=== PATIENT | female | born 1960 | race Caucasian/White ===

== ENCOUNTER 2016-08-23 21:58 | Emergency (ER) | payer MEDICAID ==
[2016-08-15 08:58] VITALS: BMI 23.6
[~2016-08-23 21:58] MED LIST: HYDROCODON-ACE1 EAC7 PO; LEVSIN/ANASP0.125 MG PO; PRILOSEC20 MG PO
[2016-08-23 22:56] LABS: APPEARANCE HAZY (CLEAR); BILIRUBIN NEGATIVE (NEGATIVE); COLOR YELLOW (YELLOW); GLUCOSE NEGATIVE (NEGATIVE); KETONE NEGATIVE (NEGATIVE); LEUKOCYTE ESTERASE TRACE (NEGATIVE); NITRITE NEGATIVE (NEGATIVE); PROTEIN NEGATIVE (NEGATIVE); UROBILINOGEN NORMAL (NORMAL)
[2016-08-23 22:57] LABS: WHITE CELLS - URINE 25-50 /hpf (0-5)
[2016-08-23 22:58] LABS: BACTERIA MODERATE /hpf (NONE SEEN)
[2016-08-23 23:28] LABS: BASOPHILS 0.3 % (0.0-2.0); EOSINOPHILS 0.6 % (0-7); HEMATOCRIT 42.7 % (36.0-48.0); HEMOGLOBIN 14.1 g/dL (12-16); IMMATURE GRANULOCYTES 0.4 % (0-5); LYMPHOCYTES 17.4 % (15-50); MCH 30.5 pg (26.0-34.0); MCV 92.2 fL (80.0-100.0); MEAN PLATELET VOLUME 12.4 fL (7.4-10.4); MONOCYTES 7.8 % (2-11); NEUTROPHILS 73.5 % (40-80); RBC 4.63 10x6/uL (4.00-5.40); RDW 12.7 % (11.5-14.5); WBC 9.7 10x3/uL (4.8-10.8)
[2016-08-23 23:32] LABS: PLATELET COUNT 191 10x3/uL (130-400)
== END 2016-08-24 00:36 | disposition home or self-care (01) ==
LOC: D.ER 21:58
PROVIDERS: Emergency Medicine
DX: R10.9 Unspecified abdominal pain (principal); R82.71 Bacteriuria; N39.0 Urinary tract infection, site not specified

== ENCOUNTER 2018-05-14 09:10 | Emergency (ER) | payer MEDICAID ==
[~2018-05-14] VITALS: Ht 149.9 cm; Wt 59.1 kg
[2018-05-14 09:12] VITALS: Ht 149.9 cm; Wt 59.1 kg
[2018-05-14 09:41] LABS: BASOPHILS 0.2 % (0-2); EOSINOPHILS 0.5 % (0-7); HEMATOCRIT 45.8 % (36.0-48.0); HEMOGLOBIN 15.5 g/dL (12-16); IMMATURE GRANULOCYTES 0.7 % (0-5); LYMPHOCYTES 14.8 % (15-50); MCH 31.1 pg (26.0-34.0); MCHC 33.8 g/dL (31.0-37.0); MCV 91.8 fL (80.0-100.0); MEAN PLATELET VOLUME 12.3 fL (7.4-10.4); NEUTROPHILS 79.8 % (40-80); PLATELET COUNT 177 10x3/uL (130-400); RBC 4.99 10x6/uL (4.00-5.40); RDW 13.2 % (11.5-14.5); WBC 8.3 10x3/uL (4.8-10.8)
[2018-05-14 09:56] LABS: ALBUMIN 3.8 g/dL (3.4-5.0); ALKALINE PHOSPHATASE 86 U/L (46-116); ALT (SGPT) 24 U/L (10-68); AMYLASE - SERUM 46 U/L (25-115); BILIRUBIN - TOTAL 0.69 mg/dL (0.2-1.3); CALC OSMOLALITY 281 mosm/kg (275-300); CALCIUM 9.4 mg/dL (8.5-10.1); CARBON DIOXIDE 24.4 mmol/L (21.0-32.0); CHLORIDE - SERUM 105 mmol/L (98-107); CREATININE - SERUM 0.8 mg/dL (0.6-1.3); GLUCOSE 112 mg/dL (74-106); LIPASE 130 U/L (73-393); POTASSIUM - SERUM 4.4 mmol/L (3.5-5.1); PROTEIN - SERUM 7.3 g/dL (6.4-8.2); SODIUM 141 mmol/L (136-145); UREA NITROGEN 12 mg/dL (7-18); eGFR NON AFRICAN AMERICAN 78 mL/min (90-120)
[2018-05-14 10:00] LABS: UDS - AMPHET NEGATIVE QUAL (NEGATIVE); UDS - BARB NEGATIVE QUAL (NEGATIVE); UDS - BENZO NEGATIVE QUAL (NEGATIVE); UDS - COCAINE NEGATIVE QUAL (NEGATIVE); UDS - OPIATE NEGATIVE QUAL (NEGATIVE); UDS - PCP NEGATIVE QUAL (NEGATIVE); UDS - THC NEGATIVE QUAL (NEGATIVE)
[2018-05-14 10:07] LABS: APPEARANCE CLEAR (CLEAR); BILIRUBIN NEGATIVE (NEGATIVE); COLOR YELLOW (YELLOW); GLUCOSE NEGATIVE (NEGATIVE); KETONE NEGATIVE (NEGATIVE); NITRITE NEGATIVE (NEGATIVE); PROTEIN NEGATIVE (NEGATIVE); UROBILINOGEN NORMAL (NORMAL)
[2018-05-14 12:50] VITALS: BP 101/56
[2018-05-14] MEDS ORDERED: NORCO 7.5/325 T1 TA1 PO (13:55)
[2018-05-14] MEDS ORDERED: ZOFRAN ODT4 MG/UDTAB PO (13:55)
[2018-05-14] MEDS ORDERED: IMODIUM2 MG PO (13:55)
== END 2018-05-14 14:28 | disposition home or self-care (01) ==
LOC: D.ER 09:10
PROVIDERS: Emergency Medicine
DX: A08.4 Viral intestinal infection, unspecified (principal)

== ENCOUNTER 2018-10-10 09:15 | Emergency (ER) | payer MEDICAID ==
[~2018-10-10] VITALS: Ht 149.9 cm; Wt 51.6 kg
[~2018-10-10 09:15] MED LIST changes: +IMODIUM2 MG PO; +NORCO 7.5/325 T1 TA1 PO; +ZOFRAN ODT4 MG/UDTAB PO
[2018-10-10 09:26] VITALS: Ht 149.9 cm; Wt 51.6 kg
[2018-10-10] MEDS ORDERED: ATIVAN1 MG PO (09:29)
[2018-10-10 09:53] LABS: BASOPHILS 0.5 % (0-2); EOSINOPHILS 0.5 % (0-7); HEMATOCRIT 44.1 % (36.0-48.0); HEMOGLOBIN 14.8 g/dL (12-16); IMMATURE GRANULOCYTES 0.7 % (0-5); LYMPHOCYTES 15.1 % (15-50); MCH 31.2 pg (26.0-34.0); MCHC 33.6 g/dL (31.0-37.0); MCV 92.8 fL (80.0-100.0); MEAN PLATELET VOLUME 12.1 fL (7.4-10.4); MONOCYTES 5.8 % (2-11); NEUTROPHILS 77.4 % (40-80); PLATELET COUNT 180 10x3/uL (130-400); RBC 4.75 10x6/uL (4.00-5.40); RDW 13.1 % (11.5-14.5); WBC 8.8 10x3/uL (4.8-10.8)
[2018-10-10 10:05] LABS: ALBUMIN 3.8 g/dL (3.4-5.0); ALKALINE PHOSPHATASE 78 U/L (46-116); ALT (SGPT) 28 U/L (10-68); BILIRUBIN - TOTAL 0.45 mg/dL (0.2-1.3); CALC OSMOLALITY 284 mosm/kg (275-300); CALCIUM 8.8 mg/dL (8.5-10.1); CARBON DIOXIDE 27.2 mmol/L (21.0-32.0); CHLORIDE - SERUM 105 mmol/L (98-107); CREATININE - SERUM 0.6 mg/dL (0.6-1.3); GLUCOSE 94 mg/dL (74-106); POTASSIUM - SERUM 4.1 mmol/L (3.5-5.1); PROTEIN - SERUM 7.2 g/dL (6.4-8.2); SODIUM 142 mmol/L (136-145); UREA NITROGEN 17 mg/dL (7-18); eGFR NON AFRICAN AMERICAN > 90 mL/min (90-120)
[2018-10-10 10:23] LABS: APPEARANCE HAZY (CLEAR); BACTERIA FEW /hpf (NONE SEEN); BILIRUBIN NEGATIVE (NEGATIVE); COLOR DK YELLOW (YELLOW); EPITHELIAL CELLS 0-5 /hpf (0-5); GLUCOSE NEGATIVE (NEGATIVE); KETONE LARGE mg/dL (NEGATIVE); MUCUS >1+ /lpf (NONE SEEN); NITRITE NEGATIVE (NEGATIVE); PROTEIN NEGATIVE (NEGATIVE); SPECIFIC GRAVITY 1.025 (1.005-1.020); UROBILINOGEN NORMAL (NORMAL); WHITE CELLS - URINE 0-5 /hpf (0-5)
[2018-10-10] MEDS ORDERED: FLAGYL500 MG PO (14:33)
[2018-10-10 15:31] VITALS: BP 106/53
== END 2018-10-10 15:33 | disposition home or self-care (01) ==
LOC: D.ER 09:15
PROVIDERS: Emergency Medicine
DX: R10.32 Left lower quadrant pain (principal); A04.72 Enterocolitis due to Clostridium difficile, not specified as recurrent; R19.7 Diarrhea, unspecified

== ENCOUNTER 2018-10-12 08:43 | Inpatient (IN) | payer MEDICAID ==
[~2018-10-12] VITALS: Ht 152.4 cm; Wt 51.3 kg
[~2018-10-12 08:43] MED LIST changes: +ATIVAN1 MG PO; +FLAGYL500 MG PO
[2018-10-12 09:25] LABS: BASOPHILS 0.3 % (0-2); EOSINOPHILS 0.3 % (0-7); HEMATOCRIT 44.6 % (36.0-48.0); HEMOGLOBIN 14.9 g/dL (12-16); IMMATURE GRANULOCYTES 0.8 % (0-5); LYMPHOCYTES 9.9 % (15-50); MCHC 33.4 g/dL (31.0-37.0); MCV 92.9 fL (80.0-100.0); MEAN PLATELET VOLUME 12.6 fL (7.4-10.4); MONOCYTES 2.7 % (2-11); PLATELET COUNT 191 10x3/uL (130-400); RDW 13.3 % (11.5-14.5)
--- NOTE | 2018-10-12 09:26 | NUR ---
PT STATES SHE HAS BEEN DX WITH C-DIFF. PLACE PT ON ISOLATION PRECAUTIONS.
[2018-10-12 09:53] LABS: ALBUMIN 3.8 g/dL (3.4-5.0); ALKALINE PHOSPHATASE 84 U/L (46-116); AMYLASE - SERUM 31 U/L (25-115); BILIRUBIN - TOTAL 0.65 mg/dL (0.2-1.3); CALCIUM 8.6 mg/dL (8.5-10.1); GLUCOSE 77 mg/dL (74-106); LIPASE 80 U/L (73-393); UREA NITROGEN 14 mg/dL (7-18)
[2018-10-12 10:10] LABS: ALT (SGPT) 40 U/L (10-68); CREATININE - SERUM 0.4 mg/dL (0.6-1.3); eGFR NON AFRICAN AMERICAN > 90 mL/min (90-120)
[2018-10-12 10:12] LABS: TROPONIN-I < 0.017 ng/mL (0.000-0.060)
[2018-10-12 10:31] LABS: APPEARANCE CLEAR (CLEAR); BILIRUBIN NEGATIVE (NEGATIVE); COLOR YELLOW (YELLOW); GLUCOSE NEGATIVE (NEGATIVE); KETONE LARGE mg/dL (NEGATIVE); NITRITE NEGATIVE (NEGATIVE); PROTEIN NEGATIVE (NEGATIVE); SPECIFIC GRAVITY 1.025 (1.005-1.020); UROBILINOGEN NORMAL (NORMAL)
[2018-10-12 10:35] LABS: CALC OSMOLALITY 284 mosm/kg (275-300); CARBON DIOXIDE 20.7 mmol/L (21.0-32.0); CHLORIDE - SERUM 105 mmol/L (98-107); CKMB 1.1 U/L (0.0-3.6); CREATINE KINASE 39 UL (21-215); POTASSIUM - SERUM 4.1 mmol/L (3.5-5.1); SODIUM 143 mmol/L (136-145)
--- NOTE | 2018-10-12 11:53 | NUR ---
TRANSFER FROM ER BY W/C. JAKEINTED TO ROOM. CALL LIGHT IN REACH. WILL CONT. PLAN OF CARE.
[2018-10-12 12:13] VITALS: BP 114/65; BMI 22.1
[2018-10-12 13:01] VITALS: BP 102/61
--- NOTE | 2018-10-12 16:19 | NUR ---
BILAT SCDS ON ORDERED.
[2018-10-12 16:53] VITALS: BP 94/50
--- NOTE | 2018-10-12 19:34 | NUR ---
REPORT RECEIVED. PT SITTING UP IN BED WITH EYES OPEN, RR EVEN AND UNALBORED. BED IN LOW POSITION. NO S/S OF DISTRESS NOTED. AT BEDSIDE. INTRODUCED SELF TO PT AND FAMILY. PT DENIES FURTHER NEEDS AT THIS TIME. CALL LIGHT IN REACH. WILL CTM.
[2018-10-12 20:00] VITALS: BP 112/54
[2018-10-13 00:05] VITALS: BP 110/49
--- NOTE | 2018-10-13 00:10 | NUR ---
CALLED INTO THE ROOM WITH C/O HEART BURN. POINTING TO EPIGASTRIC PAIN. APPEARS VERY ANXIOUS. SPOUSE STATES " THIS HAPPENS EVERY NIGHT AND EVERY MORNING. SOMETHING IS GOING ON. YOU NEED TO CALL THE DR. HAD OFFERED AN ATIVAN EARLIER AND PT DECLINE STATING "LEAVE IT THERE AND I MIGHT TAKE IT LATER". EXPLAINED I COULD NOT LEAVE THE MEDICATION. CALLED DR. THACKER AND EXPLAINED WHAT WAS GOING ON. DR STATED HAVE HER TAKE THE ATIVAN AND IF SHE GETS WOR5SE CALL ME BACK.
--- NOTE | 2018-10-13 00:40 | NUR ---
VSS. SR PER CM HR 79. PT RESTING WITH EYES CLOSED. RESP EVEN AND REGULAR. SR UP X2, CALL LIGHT WITHIN REACH.
[2018-10-13 04:00] VITALS: BP 106/51
--- NOTE | 2018-10-13 04:17 | NUR ---
PT LYING IN BED WITH EYES CLOSED, RR EVEN AND UNLABORED. BED IN LOW POSITION. AT BEDSIDE. NO S/S OF DISTRESS NOTED. DENIES FURTHER NEEDS. CALL LIGHT IN REACH. WILL CTM.
[2018-10-13 06:11] LABS: ALKALINE PHOSPHATASE 65 U/L (46-116); BILIRUBIN - TOTAL 0.28 mg/dL (0.2-1.3); CALCIUM 7.9 mg/dL (8.5-10.1); CARBON DIOXIDE 17.1 mmol/L (21.0-32.0); CHLORIDE - SERUM 110 mmol/L (98-107); POTASSIUM - SERUM 4.4 mmol/L (3.5-5.1); PROTEIN - SERUM 5.6 g/dL (6.4-8.2); SODIUM 142 mmol/L (136-145)
[2018-10-13 06:16] LABS: CALC OSMOLALITY 278 mosm/kg (275-300); CREATININE - SERUM 0.6 mg/dL (0.6-1.3); GLUCOSE 60 mg/dL (74-106); UREA NITROGEN 6 mg/dL (7-18); eGFR NON AFRICAN AMERICAN > 90 mL/min (90-120)
[2018-10-13 06:17] LABS: ALBUMIN 2.8 g/dL (3.4-5.0); ALT (SGPT) 23 U/L (10-68)
--- NOTE | 2018-10-13 06:19 | NUR ---
CHECKED PT BLOOD SUGAR, IT WAS 47. ASKED PT TO SLOWLY SIP ORANGE JUICE. RECHECKED PT BLOOD SUGAR 27 MINUTES LATER AND IT MEASURED 61, ASKED PT TO CONTINUE TO SLOWLY SIP ORANGE JUICE AND PROVIDED PT EDUCATION ON A HEALTHY BLOOD SUGAR. WILL CTM.
[2018-10-13 06:42] LABS: HEMATOCRIT 38.2 % (36.0-48.0); HEMOGLOBIN 12.5 g/dL (12-16); MCH 30.8 pg (26.0-34.0); MCHC 32.7 g/dL (31.0-37.0); MCV 94.1 fL (80.0-100.0); MEAN PLATELET VOLUME 12.3 fL (7.4-10.4); PLATELET COUNT 189 10x3/uL (130-400); RBC 4.06 10x6/uL (4.00-5.40); RDW 13.6 % (11.5-14.5)
[2018-10-13 06:43] LABS: WBC 7.3 10x3/uL (4.8-10.8)
--- NOTE | 2018-10-13 07:30 | NUR ---
ASSESSMENT COMPLETED. ALERT AND ORIENTED. IV TO RIGHT WRIST. UP AB SHAMIR. RESP REG AND NON LABORED. SR UP WITH CALL LIGHT IN REACH. FAMILY AT BEDSIDE
[2018-10-13 08:28] LABS: EOSINOPHILS 1 % (0-7); LYMPHOCYTES 17 % (15-50); MONOCYTES 2 % (2-11); NEUTROPHILS 80 % (40-80); PLATELET ESTIMATE NORMAL
[2018-10-13 08:29] LABS: PLATELET MORPHOLOGY PLT CLUMPS PRESENT
[2018-10-13 09:57] VITALS: BP 106/55
--- NOTE | 2018-10-13 10:55 | NUR ---
RN ROUNDING DONE AND I AGREE WITH ASSESSMENT FROM YARITZA NICHOLS LPN. PATIENT IS IN ENTERIC ISOLATION. SHE IS SITTING ON TOLIET CLEANING HERSELF UP FROM LOOSE STOOL. GLASSES ON. AT SIDE. DENIES ANY NEEDS FROM ME TO HELP.
[2018-10-13 12:46] VITALS: BP 141/69
--- NOTE | 2018-10-13 13:08 | NUR ---
LYING QUIETLY. SPOUSE AT BEDSIDE. NO NEEDS VOICED
[2018-10-13 17:45] VITALS: BP 115/62
--- NOTE | 2018-10-13 19:01 | NUR ---
LYING QUIETLY. DENIES ANY NEEDS. FAMILY AT BEDSIDE.
--- NOTE | 2018-10-13 19:17 | NUR ---
RECIEVED UP IN BED WITH SPOUSE AT BEDSIDE. ALERT AND ORIENTED X4. IV TO RIGHT WRIST WITH NS INFUSING AT 125CC/HR. NO REDNESS OR SWELLING TO SITE AND DSG INTACT. FI5VNTP ANY NEEDS AT THIS TIME. WILL CONT. POC.
[2018-10-13 20:00] VITALS: BP 108/61
--- NOTE | 2018-10-13 21:29 | NUR ---
SPOUSE CALLED THIS NURSE IN THE ROOM STATING SHE DOES'NT FEEL GOOD. REQUESTING A CBG BE TAKEN D/T LOW GLUCOSE THIS AM. FSBS 119. THAN SHORTLY AFTER THAT CALLS THIS NUSE BACK INTO ROOM PT STATES SHE HAD ABD CRAMPING AND BACK, ABD PAIN. ZOFRAN AND MORPHINE GIVEN WITH RELIEF.
[2018-10-14] VITALS: BP 135/75
[2018-10-14 04:00] VITALS: BP 114/61
[2018-10-14 05:45] LABS: BASOPHILS 0.3 % (0-2); EOSINOPHILS 1.7 % (0-7); HEMATOCRIT 34.5 % (36.0-48.0); HEMOGLOBIN 11.2 g/dL (12-16); IMMATURE GRANULOCYTES 0.3 % (0-5); MCH 30.2 pg (26.0-34.0); MCHC 32.5 g/dL (31.0-37.0); MEAN PLATELET VOLUME 12.6 fL (7.4-10.4); NEUTROPHILS 50.7 % (40-80); PLATELET COUNT 167 10x3/uL (130-400); RBC 3.71 10x6/uL (4.00-5.40); RDW 13.6 % (11.5-14.5)
[2018-10-14 06:33] LABS: ALBUMIN 2.6 g/dL (3.4-5.0); ALKALINE PHOSPHATASE 56 U/L (46-116); ALT (SGPT) 23 U/L (10-68); BILIRUBIN - TOTAL 0.29 mg/dL (0.2-1.3); CALC OSMOLALITY 287 mosm/kg (275-300); CALCIUM 7.7 mg/dL (8.5-10.1); CHLORIDE - SERUM 114 mmol/L (98-107); CREATININE - SERUM 0.6 mg/dL (0.6-1.3); GLUCOSE 89 mg/dL (74-106); SODIUM 147 mmol/L (136-145); UREA NITROGEN 5 mg/dL (7-18); eGFR NON AFRICAN AMERICAN > 90 mL/min (90-120)
[2018-10-14 06:36] LABS: POTASSIUM - SERUM 3.3 mmol/L (3.5-5.1)
--- NOTE | 2018-10-14 07:43 | NUR ---
PT TALKED TO ME FOR 20 MINUTES. STATES HE'S CONCNERED THAT HER COMPAINTS ARE NOT BEING TAKEN SERIOUSLY. THEY DON'T UNDERSTAND WHY SHE HAS PERIODS OF BIG PAIN AND THEN NO PAIN. THEY WANT HER MEDICATION SWITCHED FOR MORPHINE TO HYDROCHODONE. MAD THE DID NOT COME SPEAK TO THEM LAST NIGHT. (IN THE MIDDLE OF THE NIGHT). TRIED TO APEASE THEM, ANSWERED QUESTIONS BEST I COULD. INSISTED THEY TALK TO A DR. CRAIG. CL IN REACH. SRX2.
[2018-10-14 08:33] VITALS: BP 128/57
--- NOTE | 2018-10-14 10:06 | NUR ---
PT STATES SHE CAN FINALLY EAT TODAY AND IS NOT IN PAIN OR SICK. ATE MOST OF HER BREAKFAST. REQUESTS NO MORE ZOFRAN OR MORPHINE.
--- NOTE | 2018-10-14 12:10 | NUR ---
RN ROUNDS. PATIENT REMAINS IN ISOLATION. RESP EVEN AND UNLABORED. HR 60, NOON VITALS COMPLETE AT THIS TIME.
[2018-10-14 13:26] VITALS: BP 117/55
[2018-10-14 17:01] VITALS: BP 118/60
--- NOTE | 2018-10-14 19:37 | NUR ---
EVENING ROUNDS COMPLETED. REPORT RECEIVED. PT SITTING UP IN BED WITH EYES OPEN, RR EVEN AND UNLABORED. SEVERAL FAMILY MEMBERS AT BEDSIDE. NO S/S OF DISTRESS NOTED. INTRODUCED SELF TO PT. PT AND FAMILY MEMBERS DENY FURTHER NEEDS AT THIS TIME. RT WRIST PIV INFUSING NORMAL SALINE ORDERED. BED IN LOW POSITION. CALL LIGHT IN REACH. WILL CTM.
[2018-10-14 20:00] VITALS: BP 114/70
[2018-10-15] VITALS: BP 120/70
--- NOTE | 2018-10-15 00:27 | NUR ---
PT SITTING UP IN BED WITH EYES CLOSED, RR EVEN AND UNLABORED. BED IN LOW POSITION. NO S/S OF DISTRESS NOTED. NORMAL SALINE INFUISNG ORDERED THROUGH RIGHT WRIST PIV. CALL LIGHT IN REACH. WILL CTM.
--- NOTE | 2018-10-15 02:03 | NUR ---
AGRESS WITH ASSESSMENT. PT RESTING WITH EYES CLOSED. RESP EVEN AND REAGULAR. SPOUSE AT BEDSIDE. SR UP X2, CALL LIGHT WITHIN REACH.
[2018-10-15 04:00] VITALS: BP 109/63
[2018-10-15 05:15] VITALS: BP 109/63; BP 137/91
[2018-10-15 05:46] LABS: BASOPHILS 0.3 % (0-2); EOSINOPHILS 1.6 % (0-7); HEMOGLOBIN 11.5 g/dL (12-16); IMMATURE GRANULOCYTES 0.8 % (0-5); MCH 30.5 pg (26.0-34.0); MCHC 32.9 g/dL (31.0-37.0); MCV 92.8 fL (80.0-100.0); MEAN PLATELET VOLUME 11.7 fL (7.4-10.4); MONOCYTES 6.7 % (2-11); NEUTROPHILS 56.6 % (40-80); PLATELET COUNT 153 10x3/uL (130-400); RBC 3.77 10x6/uL (4.00-5.40); RDW 13.6 % (11.5-14.5); WBC 6.3 10x3/uL (4.8-10.8)
[2018-10-15 06:02] LABS: ALBUMIN 2.6 g/dL (3.4-5.0); ALKALINE PHOSPHATASE 54 U/L (46-116); ALT (SGPT) 26 U/L (10-68); BILIRUBIN - TOTAL 0.28 mg/dL (0.2-1.3); CALCIUM 7.9 mg/dL (8.5-10.1); CARBON DIOXIDE 27.4 mmol/L (21.0-32.0); CHLORIDE - SERUM 112 mmol/L (98-107); CREATININE - SERUM 0.5 mg/dL (0.6-1.3); GLUCOSE 102 mg/dL (74-106); POTASSIUM - SERUM 4.1 mmol/L (3.5-5.1); SODIUM 146 mmol/L (136-145); eGFR NON AFRICAN AMERICAN > 90 mL/min (90-120)
[2018-10-15 06:04] LABS: CALC OSMOLALITY 286 mosm/kg (275-300); UREA NITROGEN 2 mg/dL (7-18)
[2018-10-15 08:32] VITALS: BP 136/70
--- NOTE | 2018-10-15 09:14 | NUR ---
PT GIVEN ZOFRAN FOR NAUSEA PER DR CHOI PT STATES SHE HAS HAD 3 LOOSE BMS THIS AM PT STATES SHE DOES NOT FEEL WELL SHE DID YESTERDAY. WILL RELAY TO DR JUSTIN GRIDER
--- NOTE | 2018-10-15 12:30 | NUR ---
ASSESMENT REVIEWED AND AGREE.
[2018-10-15 12:52] VITALS: BP 114/65
[2018-10-15 13:34] VITALS: Ht 152.4 cm; Wt 51.3 kg
--- NOTE | 2018-10-15 18:13 | NUR ---
PT RESTING IN BED WITH EYES OPEN CALL LIGHT IN REACH NO PROBLEMS WILL MONITER
--- NOTE | 2018-10-15 19:50 | NUR ---
RESUMED CARE OF PT, LYING IN BED RESPIRATIONS EVEN AND UNLABORED ON ROOM AIR. RIGHT WRIST INFUSING NS @ 120. CALL LIGHT IN REACH, NO NEEDS VOICED AT THIS TIME. SEE NURSE ASSESSMETN.
[2018-10-15 20:00] VITALS: BP 129/67
[2018-10-16] VITALS: BP 117/63
[2018-10-16 04:00] VITALS: BP 115/63
[2018-10-16 05:26] LABS: BASOPHILS 0.3 % (0-2); EOSINOPHILS 1.6 % (0-7); HEMATOCRIT 38.9 % (36.0-48.0); HEMOGLOBIN 12.5 g/dL (12-16); IMMATURE GRANULOCYTES 0.5 % (0-5); LYMPHOCYTES 33.2 % (15-50); MCHC 32.1 g/dL (31.0-37.0); MCV 93.3 fL (80.0-100.0); MEAN PLATELET VOLUME 12.8 fL (7.4-10.4); MONOCYTES 6.2 % (2-11); NEUTROPHILS 58.2 % (40-80); RBC 4.17 10x6/uL (4.00-5.40); RDW 13.5 % (11.5-14.5); WBC 7.4 10x3/uL (4.8-10.8)
[2018-10-16 05:31] LABS: PLATELET COUNT 184 10x3/uL (130-400)
[2018-10-16 06:09] LABS: ALKALINE PHOSPHATASE 65 U/L (46-116); BILIRUBIN - TOTAL 0.37 mg/dL (0.2-1.3); CALCIUM 8.3 mg/dL (8.5-10.1); CARBON DIOXIDE 28.9 mmol/L (21.0-32.0); CHLORIDE - SERUM 110 mmol/L (98-107); CREATININE - SERUM 0.6 mg/dL (0.6-1.3); GLUCOSE 90 mg/dL (74-106); PROTEIN - SERUM 5.7 g/dL (6.4-8.2); SODIUM 146 mmol/L (136-145); eGFR NON AFRICAN AMERICAN > 90 mL/min (90-120)
[2018-10-16 06:10] LABS: ALT (SGPT) 37 U/L (10-68); CALC OSMOLALITY 287 mosm/kg (275-300); UREA NITROGEN 5 mg/dL (7-18)
--- NOTE | 2018-10-16 08:00 | NUR ---
RESUMING PT CARE, PT IS SITTING UP IN BED ALERT AND ORIENTED X3, DENIES NEEDS AT THIS TIME. DR RESENDEZ GAVE NEW ORDERS FOR A SOFT BLAND DIET AND DIETARY CONSULT. CALL LIGHT IN REACH, WILL CONTINUE TO MONITOR AND FOLLOW PLAN OF CARE.
[2018-10-16 09:06] VITALS: BP 126/69
--- NOTE | 2018-10-16 11:57 | NUR ---
Nutrition consult: Received consult from Dr. Garcia. Visited with pt at bedside. Pt reports she has been a vegan for 20 years; reports she gets B12 from fortified nutritional yeast. Pt afraid to eat 2/2 diarrhea will return. Pt is not meeting estimated nutritional needs with current po intake. Pt agreed to try a plant-based nutritional supplement. Also brought pt Storm a glutaminte, arginine nutritional supplement for increased gut health; however, pt refused to try the Storm 2/2 it had hydrolized beef collagen as an ingredient. Pharmacy does not carry Glutamine powder. Will provide pt with plant-based nutritional supplement BID and PRN. RDN following. Thank you for the consult.
[2018-10-16 12:49] VITALS: BP 114/70
--- NOTE | 2018-10-16 14:01 | NUR ---
ASSESMENT REVIEWED AND AGREE.
[2018-10-16 16:59] VITALS: BP 101/59
[2018-10-16 20:00] VITALS: BP 109/79
--- NOTE | 2018-10-16 20:30 | NUR ---
RESUMING PATIENT CARE. PATIENT IS ALERT AND ORIENTED, RESTING COMFORTABLY IN BED. RESPIRATIONS ARE EVEN AND UNLABORED. NO S/S OF DISTRESS. NO C/O PAIN. DENIES NEEDS AT THIS TIME. CALL LIGHT WITHIN REACH. WILL CPOC.
[2018-10-17 04:00] VITALS: BP 112/80
[2018-10-17 06:29] LABS: BASOPHILS 0.4 % (0-2); EOSINOPHILS 1.9 % (0-7); HEMATOCRIT 38.3 % (36.0-48.0); HEMOGLOBIN 12.5 g/dL (12-16); IMMATURE GRANULOCYTES 0.4 % (0-5); MCH 30.4 pg (26.0-34.0); MCHC 32.6 g/dL (31.0-37.0); MCV 93.2 fL (80.0-100.0); MEAN PLATELET VOLUME 12.6 fL (7.4-10.4); MONOCYTES 7.3 % (2-11); PLATELET COUNT 170 10x3/uL (130-400); RBC 4.11 10x6/uL (4.00-5.40); RDW 13.4 % (11.5-14.5); WBC 7.9 10x3/uL (4.8-10.8)
[2018-10-17 06:40] LABS: ALBUMIN 2.8 g/dL (3.4-5.0); ALKALINE PHOSPHATASE 61 U/L (46-116); ALT (SGPT) 28 U/L (10-68); BILIRUBIN - TOTAL 0.41 mg/dL (0.2-1.3); CALCIUM 8.2 mg/dL (8.5-10.1); CARBON DIOXIDE 28.1 mmol/L (21.0-32.0); CHLORIDE - SERUM 108 mmol/L (98-107); CREATININE - SERUM 0.7 mg/dL (0.6-1.3); GLUCOSE 93 mg/dL (74-106); PROTEIN - SERUM 5.4 g/dL (6.4-8.2); SODIUM 145 mmol/L (136-145); eGFR NON AFRICAN AMERICAN > 90 mL/min (90-120)
[2018-10-17 06:42] LABS: CALC OSMOLALITY 287 mosm/kg (275-300); UREA NITROGEN 11 mg/dL (7-18)
[2018-10-17] MEDS ORDERED: FLAGYL 500500 MG/100 IV (08:40)
[2018-10-17] MEDS ORDERED: VANCOCIN HCL250 MG PO (08:44)
[2018-10-17 08:57] VITALS: BP 120/59
--- NOTE | 2018-10-17 09:41 | NUR ---
SPOKE WITH DREW WILSON, REGARDING IV FLAGYL RX. SHE HAS CALLED PHARMACY AND CHANGED TO PO. SHE WILL CORRECT D/C ORDERS.
[2018-10-17] MEDS ORDERED: FLAGYL500 MG PO (09:44)
--- NOTE | 2018-10-17 10:17 | NUR ---
PT BEING D/C'D TO HOME, D/C INSTRUCTIONS GIVEN WITH VERBAL UNDERSTANDING BY PT. HER IS ON HIS WAY TO PICK HER UP.
--- NOTE | 2018-10-17 12:56 | NUR ---
I have reviewed this patient and I concur with the Shift Assessment completed by the Licensed Practical Nurse today this shift.
--- NOTE | 2018-10-17 17:05 | NUR ---
D/C INSTRUCTIONS GIVEN TO PT , IV REMOVED AND PT TAKEN TO CAR VIAWHEELCHAIR WITH SPOUSE.
--- NOTE | 2018-10-17 17:15 | MORECARE ---
CASE MANAGEMENT DISCHARGE SUMMARY PATIENT: DANETTE FERRO UNIT: [id number] ADM DATE: 10/12/18 AGE: 58 : 64 SEX: F ROOM/BED: D.0790 AUTHOR: VALENTINA JAMES PHYSICIAN: REFERRING PHYSICIAN: SHELL SEXTON MD DATE OF SERVICE: 10/17/18 Discharge Plan Patient Name: DANETTE FERRO Facility: [facility]:[place] : 1960 Planned Disposition: Home Anticipated Discharge Date: 10/17/18 Discharge Date: 10/17/2018 Expected LOS: 5 Initial Reviewer: [email or web address] Initial Review Date: 10/17/2018 Generated: 10/17/18 6:15 pm Patient Name: DANETTE FERRO Page [id number] at 1715 All edits/amendments must be made on the electronic document DICTATION DATE: 10/17/181714 RECREATIONAL DIRECTOR: MIESHA 10/17/181714 RPT#: [id number] DC DATE:10/17/18 STATUS: DIS IN [facility] [address] [place] [address] END OF REPORT
--- NOTE | 2018-10-17 17:23 | MORECARE ---
CASE MANAGEMENT DISCHARGE SUMMARY PATIENT: DANETTE FERRO UNIT: [id number] ADM DATE: 10/12/18 AGE: 58 : 64 SEX: F ROOM/BED: D.7234 AUTHOR: VALENTINA JAMES PHYSICIAN: REFERRING PHYSICIAN: SHELL SEXTON MD DATE OF SERVICE: 10/17/18 Discharge Plan Patient Name: DANETTE FERRO Facility: [facility]:[place] : 1960 Planned Disposition: Home Anticipated Discharge Date: 10/17/18 Discharge Date: 10/17/2018 Expected LOS: 5 Initial Reviewer: [email or web address] Initial Review Date: 10/17/2018 Generated: 10/17/18 6:23 pm Comments DCP- Discharge Planning Updated by [email or web address]: Mookie Hernandez on 10/17/18 4:[address] Patient Name: DANETTE FERRO Admission Status: ER Accout number: [id number] Admission Date: 10-12-2018 : 1960 Admission Diagnosis:DIARRHEA, UNSPECIFIED Attending: SHELL SEXTON Current LOS: 5 Anticipated DC Date: 10-17-2018 Planned Disposition: Home Primary Insurance: [place] [employer] [facility] Discharge Planning Comments: CM MET WITH PT IN ROOM TO DISCUSS DISCHARGE PLANNING AND NEEDS. PT REPORTS LIVING AT HOME INDEPENDENTLY WITH HER SPOUSE. PT HAS NO MEDICAL EQUIPMENT AND NO OUTSIDE SERVICES ASSISTING IN THE HOME. CM DISCUSSED AVAILABILITY OF HOME HEALTH, REHAB SERVICES AND MEDICAL EQUIPMENT. PT DENIES DISCHARGE NEEDS, REPORTS HER SPOUSE WILL PICK HER UP FOR DISCHARGE HOME. Knotting Machine Operator Portable: Mookie Hernandez DCPIA - Discharge Planning Initial Assessment Updated by [email or web address]: Mookie Hernandez on 10/17/18 5:15 pm * Is the patient Alert and Oriented? Yes * How many steps to enter\exit or inside your home? * PCP DR. SONG * Pharmacy [facility] IN [facility] * Preadmission Environment Home with Family * ADLs Independent * Equipment None * Other Equipment NO MEDICAL EQUIPMENT PROVIDER PREFERENCE * List name and contact numbers for known caregivers / representatives who currently or will assist patient after discharge: ANGEL FERRO, SPOUSE, * Verbal permission to speak to the caregivers and representatives has been obtained from the patient. N/A * Community resources currently utilized None * Please name any agencies selected above. NONE * Additional services required to return to the preadmission environment? No * Can the patient safely return to the preadmission environment? Yes * Has this patient been hospitalized within the prior 30 days at any hospital? No Last DP export: 10/17/18 4:15 p Patient Name: DANETTE FERRO Page [id number] at 1723 All edits/amendments must be made on the electronic document DICTATION DATE: 10/17/181722 FRAUD MANAGER: MIESHA 10/17/181722 RPT#: [id number] DC DATE:10/17/18 STATUS: DIS IN [facility] [address] [place] [address] END OF REPORT
== END 2018-10-17 17:07 | disposition home or self-care (01) | DRG 372 ==
LOC: D.ER 08:43 → D.EDHOLD 10:35 → D.M2 10:35
PROVIDERS: Family Medicine; ADMIT Family Medicine
DX: A04.72 Enterocolitis due to Clostridium difficile, not specified as recurrent (principal); N17.9 Acute kidney failure, unspecified; E86.0 Dehydration; K58.9 Irritable bowel syndrome, unspecified

== ENCOUNTER 2018-10-20 12:11 | Emergency (ER) | payer MEDICAID ==
[~2018-10-20] VITALS: Ht 152.4 cm; Wt 51.4 kg
[~2018-10-20 12:11] MED LIST changes: +FLAGYL 500500 MG/100 IV; +VANCOCIN HCL250 MG PO
[2018-10-20 12:35] VITALS: Ht 152.4 cm; Wt 51.4 kg
[2018-10-20 13:30] LABS: BASOPHILS 0.4 % (0-2); EOSINOPHILS 0.4 % (0-7); HEMOGLOBIN 14.1 g/dL (12-16); IMMATURE GRANULOCYTES 0.4 % (0-5); LYMPHOCYTES 17.7 % (15-50); MCH 30.9 pg (26.0-34.0); MCHC 32.8 g/dL (31.0-37.0); MCV 94.3 fL (80.0-100.0); MEAN PLATELET VOLUME 12.2 fL (7.4-10.4); MONOCYTES 8.3 % (2-11); NEUTROPHILS 72.8 % (40-80); PLATELET COUNT 200 10x3/uL (130-400); RBC 4.56 10x6/uL (4.00-5.40); RDW 13.6 % (11.5-14.5); WBC 6.7 10x3/uL (4.8-10.8)
[2018-10-20 13:54] LABS: APTT 26.3 SECONDS (22.8-39.4); INR 1.2 (0.85-1.17); PROTIME 14.7 SECONDS (11.6-15.0)
[2018-10-20 13:55] LABS: D-DIMER-QUANTITATIVE 1.73 ug/mLFEU (0.20-0.54)
[2018-10-20 13:59] LABS: ALBUMIN 3.4 g/dL (3.4-5.0); ALKALINE PHOSPHATASE 70 U/L (46-116); ALT (SGPT) 35 U/L (10-68); BILIRUBIN - TOTAL 0.25 mg/dL (0.2-1.3); CALC OSMOLALITY 285 mosm/kg (275-300); CALCIUM 8.1 mg/dL (8.5-10.1); CARBON DIOXIDE 28.3 mmol/L (21.0-32.0); CHLORIDE - SERUM 107 mmol/L (98-107); CREATININE - SERUM 0.6 mg/dL (0.6-1.3); POTASSIUM - SERUM 4.2 mmol/L (3.5-5.1); PROTEIN - SERUM 6.4 g/dL (6.4-8.2); SODIUM 142 mmol/L (136-145); UREA NITROGEN 12 mg/dL (7-18); eGFR NON AFRICAN AMERICAN > 90 mL/min (90-120)
[2018-10-20 14:05] LABS: GLUCOSE 151 mg/dL (74-106)
[2018-10-20 14:10] LABS: CKMB 0.7 U/L (0.0-3.6); LIPASE 203 U/L (73-393); TROPONIN-I < 0.017 ng/mL (0.000-0.060)
[2018-10-20 14:23] LABS: APPEARANCE HAZY (CLEAR); BILIRUBIN NEGATIVE (NEGATIVE); COLOR YELLOW (YELLOW); GLUCOSE NEGATIVE (NEGATIVE); KETONE NEGATIVE (NEGATIVE); NITRITE NEGATIVE (NEGATIVE); PROTEIN NEGATIVE (NEGATIVE); SPECIFIC GRAVITY 1.015 (1.005-1.020); UROBILINOGEN NORMAL (NORMAL)
[2018-10-20 14:24] LABS: RED CELLS - URINE OCC /hpf (0-5); WHITE CELLS - URINE 0-5 /hpf (0-5)
[2018-10-20 14:25] LABS: BACTERIA FEW /hpf (NONE SEEN)
[2018-10-20] MEDS ORDERED: EC-NAPROSYN500 MG PO (16:42)
[2018-10-20 17:22] VITALS: BP 112/60
== END 2018-10-20 17:22 | disposition home or self-care (01) ==
LOC: D.ER 12:11
PROVIDERS: Family Medicine
DX: I80.8 Phlebitis and thrombophlebitis of other sites (principal)

== ENCOUNTER 2018-10-31 11:00 | Emergency (ER) | payer MEDICAID ==
[~2018-10-31] VITALS: Ht 152.4 cm; Wt 50.0 kg
[~2018-10-31 11:00] MED LIST changes: +EC-NAPROSYN500 MG PO
[2018-10-31 11:40] VITALS: Ht 152.4 cm; Wt 50.0 kg
[2018-10-31] MEDS ORDERED: PROBIOTIC BLEN1 EACH (11:48)
[2018-10-31] MEDS ORDERED: CEREFOLIN TAB1 TAB (11:49)
[2018-10-31 12:38] LABS: BASOPHILS 0.3 % (0-2); EOSINOPHILS 0.5 % (0-7); HEMATOCRIT 42.6 % (36.0-48.0); HEMOGLOBIN 13.9 g/dL (12-16); IMMATURE GRANULOCYTES 0.5 % (0-5); LYMPHOCYTES 23.2 % (15-50); MCHC 32.6 g/dL (31.0-37.0); MCV 94.9 fL (80.0-100.0); MEAN PLATELET VOLUME 12.5 fL (7.4-10.4); MONOCYTES 6.5 % (2-11); PLATELET COUNT 220 10x3/uL (130-400); RBC 4.49 10x6/uL (4.00-5.40); RDW 13.8 % (11.5-14.5); WBC 6.3 10x3/uL (4.8-10.8)
[2018-10-31 12:40] LABS: ALBUMIN 3.7 g/dL (3.4-5.0); ALKALINE PHOSPHATASE 66 U/L (46-116); ALT (SGPT) 24 U/L (10-68); AMYLASE - SERUM 49 U/L (25-115); BILIRUBIN - TOTAL 0.49 mg/dL (0.2-1.3); CALC OSMOLALITY 282 mosm/kg (275-300); CALCIUM 8.7 mg/dL (8.5-10.1); CARBON DIOXIDE 31.2 mmol/L (21.0-32.0); CHLORIDE - SERUM 106 mmol/L (98-107); CREATININE - SERUM 0.6 mg/dL (0.6-1.3); LIPASE 152 U/L (73-393); POTASSIUM - SERUM 4.3 mmol/L (3.5-5.1); PROTEIN - SERUM 6.8 g/dL (6.4-8.2); SODIUM 143 mmol/L (136-145); UREA NITROGEN 11 mg/dL (7-18); eGFR NON AFRICAN AMERICAN > 90 mL/min (90-120)
[2018-10-31 12:41] LABS: GLUCOSE 85 mg/dL (74-106)
[2018-10-31 13:02] LABS: APPEARANCE CLEAR (CLEAR); BACTERIA FEW /hpf (NONE SEEN); BILIRUBIN NEGATIVE (NEGATIVE); COLOR YELLOW (YELLOW); EPITHELIAL CELLS 0-5 /hpf (0-5); GLUCOSE NEGATIVE (NEGATIVE); KETONE NEGATIVE (NEGATIVE); MUCUS <1+ /lpf (NONE SEEN); NITRITE NEGATIVE (NEGATIVE); PROTEIN NEGATIVE (NEGATIVE); UROBILINOGEN NORMAL (NORMAL); WHITE CELLS - URINE RARE /hpf (0-5)
[2018-10-31] MEDS ORDERED: CYCLOBENZAPRINE10 MG PO (17:42)
[2018-10-31] MEDS ORDERED: IBUPROFEN800 MG PO (17:42)
[2018-10-31] MEDS ORDERED: ACETAMINOPHEN500 M1 PO (17:43)
[2018-10-31 18:01] VITALS: BP 109/66
== END 2018-10-31 18:02 | disposition home or self-care (01) ==
LOC: D.ER 11:00
PROVIDERS: Family Medicine
DX: I80.8 Phlebitis and thrombophlebitis of other sites (principal)

== ENCOUNTER → 2018-11-06 15:26 | Outpatient (CLI) | payer MEDICAID ==
[2018-10-31 11:40] VITALS: BMI 21.5
[~2018-11-06 15:26] MED LIST changes: +ACETAMINOPHEN500 M1 PO; +CEREFOLIN TAB1 TAB; +CYCLOBENZAPRINE10 MG PO; +IBUPROFEN800 MG PO; +PROBIOTIC BLEN1 EACH
== END | disposition home or self-care (01) ==
LOC: D.LAB 11:30
PROVIDERS: ATTEND Internal Medicine Gastroenterology
DX: R19.7 Diarrhea, unspecified (principal)

== ENCOUNTER → 2018-11-22 07:45 | Outpatient (CLI) | payer MEDICAID ==
[2018-10-31 11:40] VITALS: BMI 21.5
== END | disposition home or self-care (01) ==
LOC: D.NM 07:45
PROVIDERS: ATTEND Internal Medicine Gastroenterology
DX: R10.84 Generalized abdominal pain (principal); R19.4 Change in bowel habit; R11.0 Nausea; R19.7 Diarrhea, unspecified

== ENCOUNTER → 2018-11-27 11:35 | Outpatient (CLI) | payer MEDICAID ==
[2018-10-31 11:40] VITALS: BMI 21.5
== END | disposition home or self-care (01) ==
LOC: D.LAB 11:35
PROVIDERS: ATTEND Internal Medicine Gastroenterology
DX: Z86.19 Personal history of other infectious and parasitic diseases (principal); R19.7 Diarrhea, unspecified; R10.9 Unspecified abdominal pain; R11.0 Nausea